=== PATIENT | female | born 1990 | race African-American/Black ===

== ENCOUNTER 2022-04-06 06:30 | Inpatient (IN) | payer OTHER ==
[~2022-04-06] VITALS: Ht 165.1 cm; Wt 50.9 kg
[2022-04-06 07:55] LABS: BASOPHILS % 0.4 % (0.0-2.0); EOSINOPHILS % 0.7 % (0.0-5.0); HEMATOCRIT. 39.3 % (36.0-48.0); HEMOGLOBIN. 13.2 g/dL (12.0-16.0); LYMPHOCYTES % 22.3 % (20.0-50.0); MEAN CORPUSCULAR HEMOGLOBIN 30.9 pg (28.0-32.0); MEAN CORPUSCULAR VOLUME 92.5 fL (81.0-99.0); MEAN PLATELET VOLUME 8.1 fl (7.4-10.4); MONOCYTES % 10.5 % (2.0-8.0); NEUTROPHILS % 66.1 % (40.0-76.0); PLATELET 224 x1000/uL (130-400); RED BLOOD CELL COUNT 4.25 mill/uL (4.2-5.4); RED CELL DISTRIBUTION WIDTH 12.3 % (11.6-14.6)
[2022-04-06 07:59] LABS: CHLORIDE 110 mEq/L (98-107)
[2022-04-06 09:16] LABS: B-HCG QUANTITATIVE 2132 mIU/mL (<3)
[2022-04-06 16:07] VITALS: BP 98/61
[2022-04-06 16:53] VITALS: BP 107/86
== END 2022-04-06 17:22 | disposition home or self-care (01) | DRG 832 ==
LOC: ER 06:30 → ENRESERV 12:29 → 6EST 13:46
PROVIDERS: ADMIT Specialist; ATTEND Specialist
DX: O00.90 Unspecified ectopic pregnancy without intrauterine pregnancy (principal); O99.321 Drug use complicating pregnancy, first trimester; F12.10 Cannabis abuse, uncomplicated; F32.A Depression, unspecified; O99.341 Other mental disorders complicating pregnancy, first trimester; F41.9 Anxiety disorder, unspecified; O99.331 Smoking (tobacco) complicating pregnancy, first trimester; F17.200 Nicotine dependence, unspecified, uncomplicated; O34.01 Maternal care for unspecified congenital malformation of uterus, first trimester; N83.10 Corpus luteum cyst of ovary, unspecified side; O34.81 Maternal care for other abnormalities of pelvic organs, first trimester; Q51.3 Bicornate uterus
CPT/HCPCS: 36415; 76801; 80053; 84702; 85025; 86850; 86900; 99285